=== PATIENT | male | born 1955 | race Caucasian/White ===

== ENCOUNTER → 2021-10-10 10:19 | Outpatient (CLI) | payer OTHER, SELFPAY ==
--- NOTE | ~2021-10-10 | US_ITS ---
EXAMINATION: US scrotum doppler DATE: 10/10/2021 10:59 INDICATION: Testicular swelling TECHNIQUE: Testicular sonogram utilizing grayscale and Doppler COMPARISON: None. FINDINGS: The right testis measures 3.9 x 2.7 x 3.7 cm. The left testis measures 3.6 x 3.1 x 3.1 cm. There is a 1.3 cm simple cyst of the left testicle. There is normal vascular flow to both testes. The right epididymis is normal with normal vascular flow. The left epididymis contains a 3 mm cyst or sp ermatocele. Small bilateral hydroceles are noted. IMPRESSION: 1. 1.3 cm cyst of the left testicle. Reviewed, dictated and finalized at location B.
== END ==
PROVIDERS: PCP Internal Medicine; Visit Provider Internal Medicine
DX: N44.2 Benign cyst of testis (principal)
CPT/HCPCS: 76870; 93976

== ENCOUNTER 2023-08-26 13:44 | Emergency (ER) | payer OTHER, SELFPAY ==
--- NOTE | 2023-08-26 13:50 | ED.MALEGU ---
HPI - Male Genitourinary General Chief complaint: Urogenital-Male Stated complaint: difficulty urinating Time Seen by Provider: 08/26/23 13:50 Source: patient Mode of arrival: ambulatory Limitations: no limitations History of Present Illness HPI Narrative: Hitesh is a 67-year-old male patient presenting to the clinic today with complaints of difficulty urinating since sometime last night. He reports he is only doing very minimal dribbling when attempting to go the bathroom and feels as though he needs to go constantly. History of BPH Related Data Home Medications Medication Instructions Recorded Confirmed acetaminophen 325 mg tablet mg 08/26/23 amlodipine 5 mg tablet mg 08/26/23 cevimeline 30 mg capsule 08/26/23 cyclobenzaprine 10 mg tablet mg 08/26/23 evolocumab 140 mg/mL subcutaneous mg subcut 08/26/23 pen injector (Repatha SureClick) levothyroxine 88 mcg tablet mcg 08/26/23 lidocaine 4 % topical patch patch topical 08/26/23 (Aspercreme (lidocaine)) metoprolol tartrate 50 mg tablet mg 08/26/23 Allergies Allergy/AdvReac Type Severity Reaction Status Date / Time lisinopril Allergy Cough Verified 08/26/23 14:02 Review of Systems Review of Systems: Pertinent positives per HPI. Patient denies any fever, chills, rash, headache, visual changes, dizziness, cough, runny nose, sore throat, shortness of breath, chest pain, palpitations, nausea, vomiting, diarrhea, constipation, abdominal pain. PMFSH Comments At the time of my signature, I reviewed and agree with the nursing past medical, surgical, social, and family history. There is no relevant family history pertinent to the patient complaint. Exam Narrative: General: Well-developed, well nourished, in no apparent distress. Head: Normocephalic, atraumatic. Cardio: Regular rate and rhythm, s1 and s2 normal, no murmur appreciated. Resp: Clear to auscultation bilaterally, no rhonchi, rales, wheezing or rubs. Abdomen: Soft, pliable, bowel sounds present in all quadrants, tender to palpation over the suprapubic bladder, no organomegly, no CVAT tenderness. Course Course Emergency Course: Portions of this record may have been created with voice recognition software. Level of Care: Express Care Visit Vital Signs Vital signs: Vital signs reviewed MDM - Male Genitourinary MDM Narrative Medical decision making narrative: At the time of visit patient is resting comfortably on the exam table. Patient appears to be nontoxic. Labs: Unable to void in the clinic. Plan: Recommend transfer to the ER for further evaluation-Ziegler catheter/bladder scan/kidney function labs. Discussed patient's case with Dr. Silva at [facility] in [place], [place]. He accepts patient for transfer. Differential Diagnosis Differential diagnosis: Likely urinary tract infection, urethritis, epididymitis, prostatitis, acute retention of urine and other (BPH) Discharge Plan Discharge Clinical Impression: Acute urinary retention Benign prostatic hyperplasia Qualifiers: Lower urinary tract symptom presence: symptoms present Lower urinary tract symptom detail: urinary retention Qualified Code(s): N40.1 - Benign prostatic hyperplasia with lower urinary tract symptoms Patient Disposition: Acute Care Hospital Condition: Stable Instructions: Antibiotic Form Prescriptions: No Action cyclobenzaprine 10 mg tablet acetaminophen 325 mg tablet lidocaine [Aspercreme (lidocaine)] 4 % adhesive patch,medicated TOPICAL amlodipine 5 mg tablet levothyroxine 88 mcg tablet cevimeline 30 mg capsule metoprolol tartrate 50 mg tablet Repatha SureClick 140 mg/mL pen injector SUBCUT Follow-up/Referrals: Troy,MD Patel ([place]) [Primary Care Provider] - Time of Disposition: 14:11 Quality NIHSS Nursing Documentation ED NIHSS nursing documentation: reviewed/a
[2023-08-26 13:59] VITALS: BP 147/107; PULSE 89; RESP 14; TEMP 36.1; O2SAT 98
== END 2023-08-26 15:22 | disposition short-term general hospital (02) ==
PROVIDERS: Emergency Provider Nurse Practitioner Family; PCP Internal Medicine
DX: R33.9 Retention of urine, unspecified (principal); N40.1 Benign prostatic hyperplasia with lower urinary tract symptoms
CPT/HCPCS: 99212; G0463